=== PATIENT | male | born 1975 | race Caucasian/White ===

== ENCOUNTER 2020-11-14 23:25 | Observation (INO) | payer OTHER ==
[~2020-11-14] VITALS: Ht 177.8 cm; Wt 98.4 kg
[2020-11-14 23:27] VITALS: BP 146/70
[2020-11-15] VITALS (7 sets, daily range): BP systolic 104–124; BP diastolic 59–76
[2020-11-15 00:09] LABS: ABSOLUTE NEUTROPHILS 3.4 thou/uL (1.4-8.2); BASOPHILS 0.4 % (0.0-2.0); EOSINOPHILS 4.5 % (0.0-3.0); HEMATOCRIT 40.9 % (42.0-52.0); HEMOGLOBIN 13.8 gm/dL (14.0-18.0); LYMPHOCYTES 33.7 % (24.0-44.0); MCH 30.9 pg (26.0-34.0); MCHC 33.8 g/dL (28.0-37.0); MCV 91.5 fL (80.0-100.0); MONOCYTES 13.4 % (1.0-8.0); PLATELET COUNT 202 thou/uL (150-400); RBC 4.47 mil/uL (4.50-6.00); RDW 13.7 % (10.5-14.5); WBC 7.1 thou/uL (4.0-11.0)
[2020-11-15 00:13] LABS: ANION GAP 10 mmol/L (7-16); BUN 26 mg/dL (7-18); CALCIUM 8.6 mg/dL (8.5-10.1); CHLORIDE 106 mmol/L (98-107); CO2 24 mmol/L (21-32); CREATININE 0.9 mg/dL (0.7-1.3); GLUCOSE 110 mg/dL (74-106); POTASSIUM 3.9 mmol/L (3.5-5.1); SODIUM 140 mmol/L (136-145)
[2020-11-15 00:22] LABS: TROPONIN-I <0.06 ng/mL (<0.06)
[2020-11-15] MEDS ORDERED: PROZAC10 M1 PO (00:46)
[2020-11-15] MEDS ORDERED: ASA81BEC PO (00:47)
[2020-11-15] MEDS ORDERED: DEPAKOTE250 MG PO (03:02)
[2020-11-15 06:17] LABS: CHOLESTEROL 175 mg/dL (<200); HDL CHOLESTEROL 68 mg/dL (>40); LDL CHOLESTEROL 96 mg/dL (<100); TC:HDL 2.6 Ratio (Not establshd); TRIGLYCERIDE 56 mg/dL (<150); TROPONIN-I <0.06 ng/mL (<0.06); VLDL 11 mg/dL (<40)
[2020-11-15] MEDS ORDERED: RISPERIDONE0.5 MG PO (12:06)
[2020-11-16 04:35] VITALS: BP 105/59
[2020-11-16 07:35] VITALS: BP 128/70
--- NOTE | 2020-11-16 08:40 | EKG ---
[place] [address] [facility] [place] [address] ELECTROCARDIOGRAM REPORT Name: JOSE ANTONIO SANDERS Room #: 353-P [facility]..#: [id number] Admission: 11/15/20 Attend Phys: Cristóbal Bansal MD Discharge: Date of : 73 Report #: [id number] [facility] ED Test Date: 2020-11-14 Test Time: 23:28:41 Pat Name: JOSE ANTONIO SANDERS Department: Room: [facility] Gender: M Packaging Specialist: KEERTHI : 1975 Requested By: Michael Powell Order Number: [id number] MD: Juan Antonio Rodriguez Measurements Intervals [place] Rate: 65 P: 60 CT: 140 QRS: 61 QRSD: 102 T: 9 QT: 411 QTc: 428 Interpretive Statements Sinus rhythm Poor R wave progression No previous ECG available for comparison Electronically Signed On 11-16-2020 8:40:05 CDT by Juan Antonio Rodriguez [email or web address] <ELECTRONICALLY SIGNED> By: Juan Antonio Rodriguez MD, [facility] 11/16/20 0840 [id number] Juan Antonio Rodriguez MD, FACC /EPI
--- NOTE | 2020-11-16 11:16 | 2DMMODE ---
[facility] [place] [address] 2 D/M-MODE ECHOCARDIOGRAM Name: JOSE ANTONIO SANDERS Room #: 353-P ADM Sajan M.RCésar#: [id number] Admission: 11/15/20 Attend Phys: Cristóbal Bansal MD Discharge: Date of : 73 Report #: [id number] THIS REPORT FOR: cc: FAM - No family physician/PCP FAM - No family physician/PCP Phillip Rosario MD ~ APPROVED REPORT Study performed: 11/16/2020 10:34:18 EXAM: Comprehensive 2D, Doppler, and color-flow Echocardiogram Patient Location: Echo lab Room #: [facility] Status: routine BSA: 2.09 HR: 65 bpm BP: 128/70 mmHg Rhythm: NSR Other Information Study Quality: Excellent Indications Chest Pain Hx: AR, PCI, tobacco abuse. 2D Dimensions RVDd: 36.15 mm IVSd: 11.00 (7-11mm) LVOT Diam: 22.00 (18-24mm) LVDd: 53.00 mm PWd: 11.00 (7-11mm) Ascending Ao: 31.00 (22-36mm) LVDs: 36.00 (25-40mm) Left Atrium: 40.00 (27-40mm) Aortic Root: 33.00 mm Volumes Left Atrial Volume (Systole) Single Plane 4CH: 77.55 mL Single Plane 2CH: 46.52 mL LA ESV Index: 32.00 mL/m2 Aortic Valve AoV Peak Main.: 1.31 m/s AO Peak Gr.: 6.84 mmHg LVOT Max P.64 mmHg LVOT Max V: 0.95 m/s [facility] [address] [email or web address] [address] 2 D/M-MODE ECHOCARDIOGRAM Name: JOSE ANTONIO SANDERS Room #: 353-P [facility]#: [id number] Admission: 11/15/20 Attend Phys: Cristóbal Bansal MD Discharge: Date of : 73 Report #: [id number] HARINDER Vmax: 2.87 cm2 Mitral Valve E/A Ratio: 2.9 MV Decel. Time: 228.67 ms MV E Max Main.: 1.02 m/s MV A Main.: 0.35 m/s MV PHT: 66.31 ms IVRT: 72.66 ms Pulmonary Valve PV Peak Main.: 1.08 m/s PV Peak Gr.: 4.63 mmHg Pulmonary Vein P Vein S: 0.55 m/s P Vein A: 0.30 m/s P Vein D: 0.75 m/s P Vein A Dur.: 107.3 msec P Vein S/D Ratio: 0.73 Tricuspid Valve TR Peak Main.: 2.09 m/s RAP Estimate: 5.00 mmHg TR Peak Gr.: 17.44 mmHg PA Pressure: 22.00 mmHg Left Ventricle The left ventricle is normal size. There is normal LV segmental wall motion. There is normal left ventricular wall thickness. Left ventricular systolic function is normal. LVEF is 60-65%. The left ventricular diastolic function is normal. Right Ventricle The right ventricle is normal size. The right ventricular systolic function is normal. Atria The left atrium size is normal. The right atrium size is normal. Aortic Valve The aortic valve is normal in structure. No aortic regurgitation is present. There is no aortic valvular stenosis. Mitral Valve The mitral valve is normal in structure. Trace mitral regurgitation. No evidence of mitral valve stenosis. Tricuspid Valve [facility] [address] [place] [address] 2 D/M-MODE ECHOCARDIOGRAM Name: JOSE ANTONIO SANDERS Room #: 353-P [facility] [place] ..#: [id number] Admission: 11/15/20 Attend Phys: Cristóbal Bansal MD Discharge: Date of : 73 Report #: [id number] The tricuspid valve is normal in structure. Trace tricuspid regurgitation. Estimated PAP is 20-25mmHg. Pulmonic Valve The pulmonary valve is normal in structure. Trace pulmonic regurgitation. Great Vessels The aortic root is normal in size. The ascending aorta is normal in size. IVC is normal in size and collapses >50% with inspiration. Pericardium There is no pericardial effusion. <Conclusion> The left ventricle is normal size. There is normal left ventricular wall thickness. Left ventricular systolic function is normal. The right ventricle is normal size. The left atrium size is normal. The aortic valve is normal in structure. Trace mitral regurgitation. Trace tricuspid regurgitation. Estimated PAP is 20-25mmHg. <ELECTRONICALLY SIGNED> By: Phillip Rosario MD 11/16/20 1115 1115 1115 Phillip Rosario MD /INF
--- NOTE | 2020-11-16 12:33 | HC ---
[facility] [address] CONSULTATION Name: JOSE ANTONIO SANDERS Room [facility]: 353[facility] [place]#: [id number] Admission: 11/15/20 Attend Phys: Cristóbal Bansal MD Discharge: Date of : 73 Report #: [id number] THIS REPORT FOR: cc: FAM - No family physician/PCP FAM - No family physician/PCP Phillip Rosario MD ~ DOC #: [id number] Phillip Rosario MD DATE OF SERVICE: 11/15/2020 CARDIOLOGY CONSULTATION INDICATIONS: Chest pain. HISTORY OF PRESENT ILLNESS: This is a 45-year-old gentleman with a history of ID, stent, tobacco use, presenting with chest pains. Over the past day, he has developed a discomfort in the left lower chest area radiating down his left shoulder and arm. It is exacerbated by deep inspiration and the pain has been constant. He denies any fever, diaphoresis, diarrhea or orthopnea. He reports having an ID in 2017 in [place], undergoing stent placement. He has been lost follow up due to no insurance. He reports having a stress test ____ recently, but the test was inconclusive. PAST MEDICAL HISTORY: History of myocardial infarction with stent placement in 2017 in [place], history of hypercholesterolemia. ALLERGIES: TORADOL AND HALDOL. MEDICATIONS: Aspirin once a day, Prozac and Depakote. SOCIAL HISTORY: Former tobacco user, reports quitting about a month ago. FAMILY HISTORY: Positive for CAD. REVIEW OF SYSTEMS: A full 10-point review of systems performed. Only the pertinent positives and negatives described in the HPI. PHYSICAL EXAMINATION: VITAL SIGNS: Blood pressure is 120/70, heart rate 65 beats per minute. GENERAL: This is a well-developed, well-nourished male in no acute distress. HEENT: Normocephalic and atraumatic. Oral mucosa moist. NECK: Supple. LUNGS: Clear to auscultation. CARDIAC: Regular rate and rhythm, S1 and S2 positive. ABDOMEN: Soft, nontender. EXTREMITIES: No cyanosis, no edema. [facility] [address] [place] [address] CONSULTATION Name: JOSE ANTONIO SANDERS Room #: 353-P [facility] M..#: [id number] Admission: 11/15/20 Attend Phys: Cristóbal Bansal MD Discharge: Date of : 73 Report #: [id number] IMAGING STUDIES: ECG reveals sinus rhythm, otherwise normal. LABORATORY DATA: Troponin is negative x 2. White count 7.1, hemoglobin 13.8. ASSESSMENT AND PLAN: 1. Chest pain syndrome, he has constant left-sided pain, worse with deep inspiration. Doubt ischemia related. However, his symptoms are similar to his previous presentation during his myocardial infarction. We will proceed with pharmacologic nuclear stress testing. 2. Coronary artery disease/myocardial infarction/stent, continue on aspirin therapy. 3. Hypercholesterolemia, will initiate statin therapy, previously had financial problems in compliance with the medication. 4. Bipolar disorder: Continue with medications. 5. Tobacco history: Complete smoking cessation is advised. Phillip Rosario MD ELLIE/ALL <ELECTRONICALLY SIGNED> By: Phillip Rosario MD 11/16/20 1233 0831 1033 Phillip Rosario MD /nt
[2020-11-16 16:09] VITALS: BP 115/72
[2020-11-16 19:25] VITALS: BP 112/65
[2020-11-17] VITALS (7 sets, daily range): BP systolic 110–127; BP diastolic 62–68
== END 2020-11-17 15:55 | disposition home or self-care (01) ==
LOC: ER 23:25 → EROBS 11-15 01:48 → 3W 11-15 01:48
PROVIDERS: Emergency Medicine; Nurse Practitioner Acute Care; ADMIT Hospitalist; ATTEND Hospitalist
DX: I25.119 Atherosclerotic heart disease of native coronary artery with unspecified angina pectoris (principal); Z20.822 Contact with and (suspected) exposure to COVID-19; F31.9 Bipolar disorder, unspecified; E78.5 Hyperlipidemia, unspecified; I25.2 Old myocardial infarction; E78.00 Pure hypercholesterolemia, unspecified; Z95.5 Presence of coronary angioplasty implant and graft; Z87.891 Personal history of nicotine dependence; Z91.5 Personal history of self-harm
CPT/HCPCS: 10879